=== PATIENT | female | born 1945 ===

== ENCOUNTER 2022-09-10 06:36 | Day surgery (SDC) | payer OTHER ==
[~2022-09-10] VITALS: Ht 160 cm; Wt 95.7 kg
[~2022-09-10 06:36] MED LIST: AVAPRO150 MG PO; GLIPIZIDE XL10 MG PO; JANUMET 50-1,01 EACH PO; LIPITOR40 MG PO
[2022-09-10] MEDS ORDERED: OXYC1TAB9 PO (12:55)
== END 2022-09-10 17:35 | disposition home or self-care (01) ==
LOC: CIR.AMB 06:36
PROVIDERS: ATTEND Surgery
DX: K64.2 Third degree hemorrhoids (principal); K62.5 Hemorrhage of anus and rectum; K62.89 Other specified diseases of anus and rectum; K64.4 Residual hemorrhoidal skin tags; K64.8 Other hemorrhoids; K59.09 Other constipation; Z20.822 Contact with and (suspected) exposure to COVID-19

== ENCOUNTER 2022-09-10 07:47 | Outpatient (CLI) | payer OTHER ==
[2022-09-10] MEDS ORDERED: OXYC1TAB9 PO (12:55)
== END 2022-09-10 15:07 | disposition home or self-care (01) ==
LOC: LAB 07:47
PROVIDERS: ATTEND Surgery
DX: Z20.822 Contact with and (suspected) exposure to COVID-19 (principal)